=== PATIENT | male | born 1930 | race Hispanic/Latino ===

== ENCOUNTER 2019-01-30 23:02 | Observation (INO) | payer MEDICARE ==
[~2019-01-30] VITALS: Ht 152.4 cm; Wt 56.7 kg
--- OUTSIDE RECORDS SUMMARY | 2019-01-30 23:05 | XMS REPORT | Summary of Care ---
Author Author [facility] [place] Organization [facility] [place] Address Unknown Phone Unavailable Encounter HQ Encntr_alias(FIN) [id number] Date(s): 11/17/16 - 11/17/16 [facility] [place] [address] [place] [address] [phone] Discharge Disposition: Home or Self Care Attending Physician: Joseph Humphrey MD Vital Signs No data available for this section Problem List No data available for this section Allergies, Adverse Reactions, Alerts No data available for this section Medications No data available for this section Results No data available for this section Immunizations No data available for this section Procedures No data available for this section Social History No data available for this section Assessment and Plan No data available for this section
--- OUTSIDE RECORDS SUMMARY | 2019-01-30 23:05 | XMS REPORT | Summary of Care ---
Author Author [facility] [place] Organization [facility] [place] Address Unknown Phone Unavailable Encounter HQ Encntr_aliandreas(FIN) [id number] Date(s): 12/10/16 - 12/10/16 [facility] [place] [address] [place] [address]- [phone] Discharge Disposition: Home or Self Care Attending [...]
--- OUTSIDE RECORDS SUMMARY | 2019-01-30 23:05 | XMS REPORT | Continuity of Care Document ---
Author Author [facility] Address Unknown Phone Unavailable Problems Problem Status Onset Date Classification Date Reported Comments Source R91.8 - OTHER NONSPECIFIC ABNORMAL FIN Active 12/06/2016 [facility] [place] Z00.00 - ENCNTR FOR GENERAL ADULT MEDIC Active 11/17/2016 [facility] [place] 493.20 - CHRONIC OBST Active 11/27/2013 [facility] [place] Medications Medication Details Route Status Patient Instructions Ordering Provider Order Date Source Allergies, Adverse Reactions, Alerts Substance Category Reaction Severity Reaction type Status Date Reported Comments Source Immunizations Immunization Date Given Site Status Last Updated Comments Source Results Order Name Results Value Reference Range Date Interpretation Comments Source Chest 2 views DX Chest 2 views DX Study: Chest 2 views DX 12/08/2018 9:34 [employer] Clinical Indication:88 years Male - Z00.00 Encounter for general adult medical examination without abnormal findings ; Comparison: 11/17/2016 Findings: Heart size and central vasculature are within normal limits. Nodular density in the right cardiophrenic angle is again noted, which on prior CT was due to a prominent epicardial fat pad. There is hyperinflation with slight flattening of the hemidiaphragms suggesting emphysematous changes. There is no effusion or focal pneumonia. No acute osseus pathology. Bones appear osteopenic. Impression: No acute abnormality. Possible emphysematous changes 12/08/2018 - - Read by: Joao Ambrosio MD Dictated Date/time: 12/08/18 10:30 Electronically Signed by: Joao Ambrosio MD 12/08/18 10:35 FINAL REPORT [facility] [place] Chest w/wo contrast CT Chest w/wo contrast CT Exam: CT scan of the chest with and without contrast Reason for Exam: Abnormal chest x-ray. Acid reflux. Comparison Exam: X-ray 11/17/2016 Technique: Multiple axial images were obtained of the chest. 3.75 mm slices were acquired with and without injection of 100 cc Omnipaque IV. In addition, reformatted sagittal and coronal images were obtained for additional diagnostic information. Total exam HTS=020 mGy-cm. Discussion: Visualized portions of the thyroid gland are unremarkable. No mediastinal, hilar, or axillary lymphadenopathy. The heart size is within normal limits. No pericardial or pleural effusions. The central airways are patent. Central airways are patent. No interstitial thickening or bronchiectasis. No focal lung consolidations nor pleural effusion. Note is made of a 3 mm pulmonary nodule seen within the right lower lobe (4, 78). On recent x-ray, there was description of a 2 cm asymmetric density in the right cardiophrenic recess. This corresponds to benign prominent epicardial fat abutting the right ventricle. The visualized portions of the adrenal glands are within normal limits. A few nonspecific hypodensities are seen within the liver. The largest is seen within the left lobe and measures up to 1.9 cm. (3, 94). Short-term follow-up MRI of the abdomen with liver mass protocol is recommended. No evidence seen for thoracic aortic aneurysm or dissection. No acute intraosseous abnormalities seen. No suspicious osteoblastic or osteolytic lesions. Impression: 1. On recent x-ray, there was description of a 2 cm asymmetric density in the right cardiophrenic recess. This corresponds to benign prominent epicardial fat abutting the right ventricle. 2. A few nonspecific hypodensities are seen within the liver. The largest is seen within the left lobe and measures up to 1.9 cm. Short-term follow-up MRI of the abdomen with liver mass protocol is recommended. 3. 3 mm pulmonary nodule seen within the right lower lobe. [employer] RECOMMENDATIONS FOR INCIDENTAL PULMONARY NODULES (LESS THAN 8 MM) Low risk patient Less than or equal to 4 mm: No follow-up. 4-6 mm: Follow-up CT at 12 months; if unchanged, no further follow-up. 6-8 mm: Initial follow-up CT at 6-12 months then at 18-24 months if no change. Greater than 8 mm: Follow-up CT at around 3, 9, and 24 months, dynamic contrast- enhanced CT, PET, and/or biopsy. High risk patient Less than or equal to 4 mm: Follow-up CT at 12 months; if unchanged, no further follow-up. 4-6 mm: Initial follow-up CT at 6-12 months then at 18-24 months if no change. 6-8 mm: Initial follow-up CT at 3-6 months then at 9-12 months and 24 months if no change. Greater than 8 mm: Same as low-risk patient. Notes: 1. Newly detected indeterminate nodule in persons 35 years of age or older. 2. Low risk patient: Minimal absent history of smoking and of other known risk factors. 3. High risk patient: History of smoking or other known risk factors 4. Nonsolid groundglass or partially solid nodules may require longer follow-up to exclude indolent adenocarcinoma. 5. The risk of malignancy in nodules less than or equal to 4 mm in a low risk patient is less than 1% and is substantially less than that in a baseline CT scan of an asymptomatic smoker. 12/10/2016 - - Read by: Brett Tracy MD Dictated Date/time: 12/10/16 14:00 Electronically Signed by: Brett Tracy MD 12/10/16 14:10 FINAL REPORT [facility] Chest 2 views DX Chest 2 views DX EXAM: Chest 2 views DX HISTORY: Z00.00 Encounter for general adult medical examination without abnormal findings COMPARISON: 11/27/2013 The lungs are hyperexpanded. There is faint asymmetric density in the right cardiophrenic angle measuring 2 cm. No effusion or pneumothorax is seen. The heart size is normal. Mild discogenic degenerative changes are noted. There is a healing fracture of the right posterior 6th and possibly 7th and 8th ribs as well. IMPRESSION: There is faint asymmetric density in the right cardiophrenic angle measuring 2 cm, of questionable clinical significance. Consider CT chest for further evaluation, if clinically appropriate. 11/17/2016 - - Read by: Diane Wheeler MD Dictated Date/time: 11/17/16 09:10 Electronically Signed by: Diane Wheeler MD 11/17/16 09:13 FINAL REPORT [facility] Chest 2 views Chest 2 views Exam: Two-view chest x-ray Reason for Exam: Chronic obstructive asthma Comparison Exam: Chest x-ray 05/21/2011 Discussion: Cardiomediastinal silhouette is within normal limits. Both hemidiaphragms well visualized. No pulmonary edema or pleural effusions. No focal lung consolidations. Lungs appear hyperexpanded, suggestive of COPD. Trachea is midline. No acute bony abnormalities. Impression: 1. No acute cardiopulmonary abnormalities. 11/27/2013 - - Read by: Brett Tracy Dictated Date/time: 11/27/13 09:34 Electronically Signed by: Brett Tracy MD 11/27/13 09:38 FINAL REPORT [facility] [place] Vital Signs Vital Sign Value Date Comments Source Encounters Location Location Details Encounter Type Encounter Number Reason For Visit Attending Provider ADM Date DC Date Status Source OD [id number] 493.20 - CHRONIC OBST JOSEPH HUMPHREY 11/27/2013 Active [facility] [place] [facility] [place] [facility] [id number] Joseph Humphrey 11/17/2016 11/18/2016 [facility] [place] [facility] [place] [facility] [id number] Joseph Humphrey 12/10/2016 12/11/2016 [facility] [place] [facility] [place] [facility] [id number] Joseph Humphrey 12/08/2018 12/09/2018 [facility] [place] Procedures Procedure Code Date Perfomer Comments Source
--- OUTSIDE RECORDS SUMMARY | 2019-01-30 23:05 | XMS REPORT | Summary of Care ---
Author Author [facility] [place] Organization [facility] [place] Address Unknown Phone Unavailable Encounter HQ Encntr_alias(FIN) [id number] Date(s): 12/08/18 - 12/08/18 [facility] [place] [address] [place] [address] [phone] Discharge Disposition: Home or Self Care Attending Physician: Joseph Humphrey MD Referring Physician: Joseph Humphrey MD Vital Signs No [...]
--- NOTE | 2019-01-31 00:39 | Diagnostic Imaging Report ---
EXAMINATION: PA and lateral views of the chest. COMPARISON: None CLINICAL HISTORY: Cough for 2 weeks DISCUSSION: Lines/tubes: None. Lungs: Lungs are well-inflated. Ill defined patchy opacity in the left retrocardiac region. There is subtle ill-defined opacity in the right upper lobe. The lungs are otherwise clear. Pleura: Blunting of the left posterior costophrenic sulcus, suggesting small pleural effusion. Heart and mediastinum: Cardiomediastinal silhouette is unremarkable. Pulmonary vasculature is normal. Bones and soft tissues: No acute bony abnormalities. Age-appropriate degenerative changes in the thoracic spine IMPRESSION: 1. Findings may represent multifocal pneumonia, in the appropriate clinical setting. Likely small left pleural effusion. Recommend chest PA and lateral 4-6 weeks after appropriate treatment to document resolution. Signed by: Dr. Daniel Palacios M.D. on 01/31/2019 12:35 AM
[2019-01-31] MEDS ORDERED: CEFTRIAXONE SOD 1 GRAM/0.9% SOD CHL 50ML BAG IV ONE (01:00)
[2019-01-31 01:14] LABS: BASOPHILS # (AUTO) 0.1 (0.0-0.1); BASOPHILS % 0.7 % (0.0-1.0); EOSINOPHILS # (AUTO) 0.6 (0.0-0.4); EOSINOPHILS % 6.2 % (0.0-6.0); HEMATOCRIT 39.1 % (38.2-49.6); LYMPHOCYTES # (AUTO) 0.7 (1.0-3.2); LYMPHOCYTES % 8.1 % (18.0-39.1); MEAN CORPUSCULAR HGB CONC 33.2 g/dL (31-35); MEAN CORPUSCULAR VOLUME 87.3 fL (81-99); MONOCYTES # (AUTO) 0.9 (0.2-0.8); MONOCYTES % 9.4 % (4.4-11.3); NEUTROPHILS # (AUTO) 6.9 (2.1-6.9); NEUTROPHILS % 75.1 % (38.7-80.0); PLATELET COUNT 314 x10e3/uL (140-360); RED BLOOD COUNT 4.48 x10e6/uL (4.3-5.7); RED CELL DISTRIBUTION WIDTH 13.2 % (11.7-14.4)
[2019-01-31] MEDS ORDERED: FLOMAX0.4 MG PO (01:17)
[2019-01-31] MEDS: AZITHROMYCIN 500MG/NS 250 ML 250 ML IV SCH (01:34)
[2019-01-31 01:53] LABS: ALANINE AMINOTRANSFERASE 52 IU/L (0-55); ALBUMIN/GLOBULIN RATIO 0.8 (0.8-2.0); ALKALINE PHOSPHATASE 153 IU/L (40-150); ANION GAP 12.1 mmol/L (8-16); BLOOD UREA NITROGEN 18 mg/dL (7-26); BUN/CREATININE RATIO 21 (6-25); CALCIUM 9.8 mg/dL (8.4-10.2); CARBON DIOXIDE 26 mmol/L (22-29); CHLORIDE 101 mmol/L (98-107); CREATINE KINASE 99 IU/L (30-200); CREATININE, SERUM 0.84 mg/dL (0.72-1.25); EST GLOMERULAR FILTRATION RATE > 60 ML/MIN (60-); GLUCOSE 97 mg/dL (74-118); POTASSIUM 4.1 mmol/L (3.5-5.1); SODIUM 135 mmol/L (136-145)
[2019-01-31] MEDS ORDERED: ONDANSETRON HCL INJ 2MG/ML 2ML 2 MG/ML VIAL IV PRN ×2 (02:30→06:15)
[2019-01-31] MEDS ORDERED: SODIUM CHLORIDE FLUSH 10 ML SYR INJ PRN (02:30)
[2019-01-31] MEDS ORDERED: ZOLPIDEM TARTRATE 5 MG TAB PO PRN ×2 (02:30→21:00)
[2019-01-31] MEDS ORDERED: DIPHENHYDRAMINE HCL INJ 50 MG/ML VIAL IV PRN (02:30)
[2019-01-31] MEDS ORDERED: CLONIDINE HCL 0.2 MG TAB PO PRN (02:30)
[2019-01-31] MEDS ORDERED: ENALAPRILAT IV INJ 1.25 MG/ML VIAL IV PRN (02:30)
[2019-01-31] MEDS ORDERED: MORPHINE SULFATE INJ 4 MG/ML INJ 1ML IV PRN (02:30)
[2019-01-31] MEDS ORDERED: ACETAMINOPHEN 325 MG TAB PO PRN ×2 (02:30→06:15)
[2019-01-31] MEDS ORDERED: AZITHROMYCIN 500MG/NS 250 ML 250 ML IV SCH (02:30)
--- OUTSIDE RECORDS SUMMARY | 2019-01-31 02:33 | XMS REPORT ---
[facility] Address Unknown Phone Unavailable Care Team Providers Care Parts Control Clerk Name Role Phone Cameron ROJAS Unavailable Unavailable Problems This patient has no known problems. Allergies, Adverse Reactions, Alerts This patient has no known allergies or adverse reactions. Medications This patient has no known medications. Results Test Description Test Time Test Comments Text Results Atomic Results Result Comments CHEST 2 VIEWS 2019-01-31 00:34:00 [place] [address] Patient Name: MILTON ROCA MR #: [id number] : 1930 Age/Sex: 88/M Req #: [id number] Adm Physician: Ordered by: CHRYSTAL ROJAS MD Report #: [id number] Location: ER Room/Bed: Procedure: [id number] DX/CHEST 2 VIEWS Exam Date: 01/31/19 Exam Time: 2359 REPORT STATUS: Signed EXAMINATION: PA and lateral views of the chest. COMPARISON: None CLINICAL HISTORY: Cough for 2 weeks DISCUSSION: Lines/tubes: None. Lungs: Lungs are well-inflated. Ill defined patchy opacity in the left retrocardiac region. There is subtle ill-defined opacity in the right upper lobe. The lungs are otherwise clear. Pleura: Blunting of the left posterior costophrenic sulcus, suggesting small pleural effusion. Heart and mediastinum: Cardiomediastinal silhouette is unremarkable. Pulmonary vasculature is normal. Bones and soft tissues: No acute bony abnormalities. Age-appropriate degenerative changes in the thoracic spine IMPRESSION: 1. Findings may represent multifocal pneumonia, in the appropriate clinical setting. Likely small left pleural effusion. Recommend chest PA and lateral 4-6 weeks after appropriate treatment to document resolution. Signed by: Dr. Colten Fernandes M.D. on 01/31/2019 12:35 AM Dictated By: COLTEN FERNANDES MD Transcribed By: ALANNA on 01/31/1932 COPY TO: CHRYSTAL ROJAS MD
[2019-01-31] MEDS: IPRATROPIUM BROMIDE 0.02% 2.5 ML NEB NEB SCH ×3 (03:00→20:30)
[2019-01-31] MEDS: ALBUTEROL SULF 0.083% NEB SOLN 3 ML NEB NEB SCH ×5 (03:00→20:30)
[2019-01-31] MEDS ORDERED: GUAIFENESIN/DEXTROMETHORPHAN LIQD 5 ML UDC NG PRN (06:15)
[2019-01-31] MEDS ORDERED: SENNOSIDES 8.6 MG TAB PO PRN (06:15)
[2019-01-31] MEDS ORDERED: BENZONATATE 100 MG CAP PO PRN (06:15)
--- NOTE | 2019-01-31 07:17 | NUR ---
History and PHysical cc: cough/sob HPI: 88yoM, PCP , developed cough/sob for past 2 weeks. no fever/N/cp. PMH: HTN, BPH PHSx; unknown Allergies; see emr Fh/SH; ; no cigs/illicits/etoh Meds; see MAR ROS; no f/c/s/N/V/D/SELLERS/vision changes/leg pain v/s rev'd PE: tired appearing anicteric ns1s2 REDUCED BS at bases; no w soft NT ND no e/t a&ox2; ingram skin dry FLAT AFFECT labs/meds revd A/P: 88yoM Multifocal PNA Physical deconditioning HTn BPH PLAN IV abx antitussives antiHTN meds; Flomax Lovenox; pepcid PT consult; Ran Sidhu MD, PhD.
[2019-01-31 07:45] VITALS: BP 137/63
[2019-01-31 08:25] VITALS: BP 137/63
[2019-01-31 08:36] VITALS: BP 137/63
[2019-01-31] MEDS ORDERED: CEFTRIAXONE SOD 1 GM VIAL IV SCH ×2 (09:00→13:00)
[2019-01-31] MEDS ORDERED: PNEUMOCOCCAL VACCINE POLYVALENT 23 MCG/0.5 ML VIAL IM ONE (09:15)
[2019-01-31 09:45] LABS: CREATINE KINASE MB 5.4 ng/mL (0-5.0)
[2019-01-31] MEDS: FAMOTIDINE 20 MG/2 ML VIAL IV SCH ×2 (10:12→17:29)
[2019-01-31] MEDS: TAMSULOSIN HCL 0.4 MG CAP PO SCH (10:12)
[2019-01-31 11:04] VITALS: BP 125/74
[2019-01-31] MEDS ORDERED: SODIUM CHLORIDE 0.9% 250ML 250 ML ONE (12:25)
[2019-01-31] MEDS: CEFTRIAXONE SOD 1 GM/NS 50 ML 50 ML IV SCH ×2 (13:16→21:47)
[2019-01-31 15:19] VITALS: BP 124/57
[2019-01-31] MEDS ORDERED: ENOXAPARIN SOD INJ 40 MG/0.4 ML SYR SC SCH (17:00)
[2019-01-31 18:04] LABS: CREATINE KINASE MB 8.6 ng/mL (0-5.0)
--- NOTE | 2019-01-31 18:26 | NUR ---
CALLED BO SARGENT, NOTIFIED HIM OF [facility], CREATININE KINASE, AND TROPONIN FOR 01/31/19 TIME 00:55. 09:05 AND 17:00 OF PATIENT'S RESULTS.
--- NOTE | 2019-01-31 19:00 | NUR ---
RECEIVED REPORT FROM PREVIOUS NURSE. CALL LIGHT WITHIN REACH. NO PAIN OR DISTRESS
[2019-01-31 20:00] VITALS: BP 94/53
[2019-02-01] VITALS: BP 102/60
[2019-02-01 00:30] VITALS: BP 102/60
[2019-02-01] MEDS: AZITHROMYCIN 500MG/NS 250 ML 250 ML IV SCH (01:41)
[2019-02-01 04:00] VITALS: BP 101/59
[2019-02-01] MEDS: ALBUTEROL SULF 0.083% NEB SOLN 3 ML NEB NEB SCH (06:00)
[2019-02-01] MEDS: IPRATROPIUM BROMIDE 0.02% 2.5 ML NEB NEB SCH (06:00)
[2019-02-01] MEDS: CEFTRIAXONE SOD 1 GM/NS 50 ML 50 ML IV SCH (08:03)
[2019-02-01] MEDS: FAMOTIDINE 20 MG/2 ML VIAL IV SCH (08:03)
[2019-02-01] MEDS: TAMSULOSIN HCL 0.4 MG CAP PO SCH (08:03)
[2019-02-01 08:22] VITALS: BP 117/64
[2019-02-01 08:25] VITALS: BP 117/64
[2019-02-01] MEDS ORDERED: LEVAQUIN500 MG PO (09:14)
[2019-02-01] MEDS ORDERED: Guaifenesin/Dextromethorphan NG (09:14)
[2019-02-01] MEDS ORDERED: TESSALON PERLE100 MG PO (09:14)
--- NOTE | 2019-02-01 09:20 | NUR ---
Discharge summary A/P: 88yoM Multifocal PNA Physical deconditioning HTn BPH PLAN IV abx antitussives antiHTN meds; Flomax Lovenox; pepcid PT consult; doing well; no O2; d/c home on levaquin; f/u 1 week; Ran Sidhu MD, PhD.
--- NOTE | 2019-02-01 09:26 | NUR ---
ADdendum to dc summary condition; stable d/c home d/c >35mins
[2019-02-01 11:46] VITALS: BP 129/60
== END 2019-02-01 12:07 | disposition home or self-care (01) ==
LOC: ER 23:02 → ERHOLD 01-31 02:30 → IMCU 01-31 07:41
PROVIDERS: ADMIT Internal Medicine; ATTEND Internal Medicine
DX: J15.9 Unspecified bacterial pneumonia (principal); R53.81 Other malaise; I10 Essential (primary) hypertension; N40.0 Benign prostatic hyperplasia without lower urinary tract symptoms; Z23 Encounter for immunization
CPT/HCPCS: 36415; 71046; 80053; 82550; 82553; 83880; 84484; 85025; 87040; 90732; 93005; 94640 ×2; 97161; 99284; G0009; G0378 ×2; J0456 ×2; J0696 ×2; J1650; J7050